=== PATIENT | female | born 1935 | race Two or more races ===

== ENCOUNTER 2016-08-02 14:26 | Inpatient (IN) | payer BC ==
[~2016-08-02] VITALS: Ht 162.6 cm; Wt 55.3 kg
[2016-08-02] VITALS (14 sets, daily range): BP systolic 93–123; BP diastolic 52–83
--- NOTE | 2016-08-02 14:27 | NUR ---
CALLED RT FOR STAT ABG
[2016-08-02] MEDS ORDERED: IV NS 0.9% 1,000 ML BAG IV ONE ×2 (14:30→15:30)
[2016-08-02] MEDS ORDERED: IV SET PRIMARY PUMP SET 1 EA INFUS.SET MC ONE ×5 (14:30→17:52)
[2016-08-02] MEDS ORDERED: IV NS 0.9% 1,000 ML ONE (14:30)
--- NOTE | 2016-08-02 14:32 | NUR ---
Jose R from home due to altered mental status. Per report patient was founf on the floor by her . bs in field was greater than 500mg/dl. Patient receieved, awake, alert however confused. Appears weak, in mild distress, respiration even and unlabored. Sating 99% on room air. Skin is warm to touch and non diaphoretic. Afebrile. Gowned and placed on tele monitor.
--- NOTE | 2016-08-02 14:33 | NUR ---
Md Urena at bedside
--- NOTE | 2016-08-02 14:40 | NUR ---
(16 ) FR bella catheter inserted per sterile protocal. Immediate output (200 )ML of urine, color (yellow ), clarity ( )
--- NOTE | 2016-08-02 14:50 | NUR ---
Rt at for stat abg
[2016-08-02] MEDS ORDERED: INSU100V7 SQ (14:59)
[2016-08-02] MEDS ORDERED: INSU100V11 SQ (14:59)
[2016-08-02 15:00] LABS: BASOPHILS # (AUTO) 0.5 /CMM (0.0-0.2); BASOPHILS % (AUTO) 2.2 % (0.0-2.0); EOSINOPHILS # (AUTO) 0.6 /CMM (0.0-0.7); EOSINOPHILS % (AUTO) 2.5 % (0.0-6.0); HEMATOCRIT 49 % (33-45); HEMOGLOBIN 14.5 g/dL (11.5-14.8); LYMPHOCYTES # (AUTO) 1.2 /CMM (0.8-4.8); LYMPHOCYTES % (AUTO) 5.5 % (20.0-44.0); MEAN CORPUSCULAR HEMOGLOBIN 29 PG (26.0-33.0); MEAN CORPUSCULAR HGB CONC 30 g/dl (31.0-36.0); MEAN CORPUSCULAR VOLUME 97 fL (82-100); MONOCYTES # (AUTO) 0.5 /CMM (0.1-1.30); MONOCYTES % (AUTO) 2.4 % (2.0-12.0); NEUTROPHILS # (AUTO) 19.8 /CMM (1.8-8.9); NEUTROPHILS % (AUTO) 87.4 % (43.0-81.0); PLATELET COUNT (AUTO) 389 /CMM (150-450); RDW COEFFICIENT OF VARIATION 14.1 (11.5-15.0); RED BLOOD CELL COUNT(AUTO) 5.04 MIL/uL (4.0-5.2); WHITE BLOOD COUNT (AUTO) 22.6 K/uL (4.3-11.0)
--- NOTE | 2016-08-02 15:00 | NUR ---
pt was taken to ct
[2016-08-02 15:01] LABS: ABG BASE EXCESS -18.6 mmol/L; ABG OXYGEN SATURATION 95.9 % (92.0-98.5); ABG PCO2 21.4 mmHg (35.0-45.0); ABG PH 7.179 (7.350-7.450); ABG PO2 97.6 mmHg (75.0-100.0); ABG TOTAL HEMOGLOBIN 13.5 G/dL (12.0-16.0); AaDO2 26.5 mmHg; COHb 0.4 % (0.5-1.5); MetHb 0.6 % (0.0-1.5); O2Hb 94.9 % (94.0-97.0); SITE, ABG Right Radial; VENT MODE, BG RA
[2016-08-02 15:02] LABS: APPEARANCE,URINE Clear (CLEAR); BILIRUBIN,URINE Negative (NEGATIVE); BLOOD, URINE Large Ery/uL (NEGATIVE); COLOR,URINE Yellow (YELLOW); KETONES,URINE 40 (NEGATIVE); LEUKOCYTE ESTERASE ,URINE Negative (NEGATIVE); NITRITE, URINE Negative (NEGATIVE); PROTEIN,URINE Trace mg/dl (NEGATIVE); UROBILINOGEN,URINE 0.2 EU/dL (0.2)
--- NOTE | 2016-08-02 15:03 | NUR ---
iv accessed to [facility] 20. blood sample sent to lab
--- NOTE | 2016-08-02 15:14 | NUR ---
CALLED NURSING SUP. FOR ICU BED, SAID SHE WILL CALL ME BACK
[2016-08-02 15:15] LABS: PROTHROMBIN TIME 10.4 SECS (9.5-12.7)
--- NOTE | 2016-08-02 15:15 | NUR ---
patient still in ct
[2016-08-02 15:17] LABS: UGLUCOSE 500 MG/DL mg/dL (NEGATIVE)
[2016-08-02 15:17] LABS: ALANINE AMINOTRANSFERASE 73 U/L (12-78); ALBUMIN 3.4 g/dL (3.4-5.0); ALKALINE PHOSPHATASE 103 U/L (46-116); ASPARTATE AMINOTRANSFERASE 64 U/L (15-37); BILIRUBIN,DIRECT 0.3 mg/dL (0.0-0.2); BILIRUBIN,TOTAL 0.7 mg/dL (0.2-1.0); CALCIUM, SERUM 9.3 mg/dL (8.5-10.1); CHLORIDE 88 mmol/L (98-107); CREATININE 2.7 mg/dL (0.6-1.3); POTASSIUM 5.9 mmol/L (3.5-5.1); SODIUM SERUM 131 mmol/L (136-145); UREA NITROGEN, BLOOD 67 mg/dL (7-18)
[2016-08-02 15:18] LABS: ADD URINE CULTURE NO; BACTERIA,URINE Few /HPF (None Seen); SQUAMOUS EPITHELIAL CELL,UR Few /HPF (None Seen)
[2016-08-02 15:18] LABS: SERUM AMMONIA 21 umol/L (11-32)
[2016-08-02 15:19] LABS: CARBON DIOXIDE 10 mmol/L (21-32)
[2016-08-02 15:25] LABS: LACTIC ACID 4.9 mmol/L (0.4-2.0)
[2016-08-02 15:26] LABS: ALCOHOL, BLOOD < 3 mg/dL (0-0)
[2016-08-02 15:27] LABS: TROPONIN I 2.457 ng/mL (0.00-0.056)
[2016-08-02] MEDS ORDERED: INSULIN REGULAR, HUMAN 100 UNIT in IV NS 0.9% 99 ML IV PRN ×4 (15:30→17:00)
[2016-08-02] MEDS ORDERED: SODIUM BICARBONATE SYR 50 MEQ/50 ML DISP.SYRIN IV ONE (15:30)
[2016-08-02 15:31] LABS: GLUCOSE 1060 mg/dL (74-106)
[2016-08-02] MEDS ORDERED: SODIUM BICARBONATE SYR 50 MEQ/50 ML DISP.SYRIN ONE (15:37)
[2016-08-02] MEDS ORDERED: PIPERACILLIN /TAZOBACTAM 3.375 G in IV D5W 50 ML IV ONE (16:00)
[2016-08-02] MEDS ORDERED: ASPIRIN 300 MG/SUPP.RECT RC ONE ×2 (16:00→16:13)
--- NOTE | 2016-08-02 16:18 | NUR ---
patient is back from ct
--- NOTE | 2016-08-02 16:18 | NUR ---
Md boyce at bs. Per MD Boyce leave patient;'s insulin at 6u/hr at this time,.
[2016-08-02 16:30] LABS: BAND % (MANUAL) 6 % (0.0-5.0); BASOPHILS % (MANUAL) 0 % (0.0-2.0); EOSINOPHILS % (MANUAL) 1 % (0-4); MONOCYTES % (MANUAL) 4 % (0-11.0); NEUTROPHILS % (MANUAL) 77 (42-76); PLATELET ESTIMATE ADEQUATE
[2016-08-02] MEDS ORDERED: ZOLPIDEM TARTRATE 5 MG TABLET PO PRN (16:30)
[2016-08-02] MEDS ORDERED: MAGNESIUM HYDROXIDE 30 ML UDC PO PRN (16:30)
[2016-08-02] MEDS ORDERED: ACETAMINOPHEN 325 MG TABLET PO PRN (16:30)
[2016-08-02] MEDS ORDERED: Z GUARD REMEDY 2 OZ OINT TP PRN (16:30)
[2016-08-02] MEDS ORDERED: MORPHINE SULFATE INJ 2 MG/ML DISP.SYRIN IV PRN (16:30)
[2016-08-02] MEDS ORDERED: MAG HYDROX/AL HYDROX/SIMETH 30 ML UDC PO PRN (16:30)
[2016-08-02] MEDS ORDERED: ONDANSETRON HCL/PF 4 MG/2 ML VIAL IVP PRN (16:30)
[2016-08-02] MEDS ORDERED: HYDROCODONE/APAP 5/325MG 1 EACH TABLET PO PRN (16:30)
[2016-08-02] MEDS ORDERED: ENOXAPARIN SODIUM 40 MG/0.4 ML DISP.SYRIN SQ SCH (16:30)
[2016-08-02] MEDS ORDERED: IV LR 1000 ML 1,000 ML ONE (17:00)
[2016-08-02] MEDS ORDERED: IV LR 1000 ML 1,000 ML IV ONE (17:00)
[2016-08-02] MEDS ORDERED: CALCIUM CHLORIDE 1,000 MG/10 ML DISP.SYRIN ONE (17:03)
[2016-08-02] MEDS ORDERED: DILTIAZEM HCL 25 MG IV ONE (17:03)
--- NOTE | 2016-08-02 17:07 | NUR ---
PATIENT WAS NOTED WITH HR 170-=- MD SHARON TAYLOR AT BEDSIDE. VERBAL ORDERS RECEIVED
--- NOTE | 2016-08-02 17:17 | NUR ---
[facility] PAGED, DR.VU CROFT MOVIE MACHINE OPERATOR
[2016-08-02 17:29] LABS: CALCIUM, SERUM 8.1 mg/dL (8.5-10.1); CREATININE 2.7 mg/dL (0.6-1.3); POTASSIUM 5.3 mmol/L (3.5-5.1)
[2016-08-02] MEDS ORDERED: Calcium Gluconate 1GM/10ML 4.65 MEQ in IV D5W 50 ML IV ONE (17:30)
[2016-08-02] MEDS ORDERED: DILTIAZEM HCL 25 MG IV IV ONE (17:30)
[2016-08-02] MEDS ORDERED: SECONDARY IV SET 1 EA INFUS.SET MC ONE (17:52)
[2016-08-02] MEDS: BLOOD SUGAR DIAGNOSTIC 1 EACH STRIP IN SCH ×7 (17:52→23:06)
[2016-08-02] MEDS ORDERED: AMIODARONE 900 MG in IV D5W 482 ML IV PRN (18:00)
[2016-08-02] MEDS ORDERED: AMIODARONE 150 MG in IV D5W 100 ML IV ONE (18:00)
--- NOTE | 2016-08-02 18:00 | NUR ---
DR CROFT NOTIFIED BS 997. ON THI USE FOLLOWING FORMULA BSX2 /100
[2016-08-02] MEDS: CEFTRIAXONE 1 G in IV D5W 50 ML IV SCH (18:37)
[2016-08-02] MEDS: IV NS 0.9% 1,000 ML IV PRN (18:40)
[2016-08-02 19:05] LABS: CALCIUM, SERUM 8.9 mg/dL (8.5-10.1); CREATININE 2.6 mg/dL (0.6-1.3); POTASSIUM 4.2 mmol/L (3.5-5.1)
[2016-08-02 19:21] LABS: LACTIC ACID 3.9 mmol/L (0.4-2.0)
--- NOTE | 2016-08-02 20:00 | NUR ---
ICU/RN RECEIVED PT AWAKE ALERT ORIENTED TO PERSON,REORIENTED TO PLACE AND SURROUNDINGS.CONFUSED AT TIMES.ON AMIODARONE DRIP AT 1MG/HR FOR AFIB W/RVR.ON INSULIN DRIP AT 17 UNITS/HR.DENIES PAIN OR DISCOMFORT.
[2016-08-02] MEDS ORDERED: METOPROLOL TARTRATE INJ 5 MG/5 ML AMPUL IVP PRN (21:00)
[2016-08-02] MEDS ORDERED: METOPROLOL TARTRATE INJ 5 MG/5 ML AMPUL ONE (21:30)
--- NOTE | 2016-08-02 21:30 | NUR ---
ICU/RN DR MISHRA IN TO SEE PT.UPDATED W/ PT'S CONDITION.REMAINS IN AFIB W/ RVR
[2016-08-02] MEDS ORDERED: ENOXAPARIN SODIUM 30 MG/0.3 ML DISP.SYRIN ONE (21:33)
--- NOTE | 2016-08-02 21:57 | NUR ---
ICU/RN LOPRESSOR 2.5MG SLOW IVP GIVEN FOR AFIB W RVR OF 138.HR DOWN TO 90'S-100'S IN A-FIB.
[2016-08-03] VITALS (43 sets, daily range): BP systolic 11–157; BP diastolic 39–75
[2016-08-03] MEDS: BLOOD SUGAR DIAGNOSTIC 1 EACH STRIP IN SCH ×12 (00:28→21:21)
[2016-08-03] MEDS: IV NS 0.9% 1,000 ML IV PRN ×2 (00:44→06:28)
--- NOTE | 2016-08-03 01:33 | NUR ---
ICU/RN CONVERTED TO NSR 90'S-111.STABLE BP 100'S.
[2016-08-03 04:48] LABS: EOSINOPHILS % (AUTO) 0.1 % (0.0-6.0); HEMATOCRIT 39 % (33-45); HEMOGLOBIN 12.9 g/dL (11.5-14.8); LYMPHOCYTES # (AUTO) 0.3 /CMM (0.8-4.8); LYMPHOCYTES % (AUTO) 2.3 % (20.0-44.0); MEAN CORPUSCULAR HEMOGLOBIN 29 PG (26.0-33.0); MEAN CORPUSCULAR HGB CONC 33 g/dl (31.0-36.0); MEAN CORPUSCULAR VOLUME 89 fL (82-100); MONOCYTES # (AUTO) 1.1 /CMM (0.1-1.30); MONOCYTES % (AUTO) 7.9 % (2.0-12.0); NEUTROPHILS # (AUTO) 12.6 /CMM (1.8-8.9); NEUTROPHILS % (AUTO) 89.7 % (43.0-81.0); PLATELET COUNT (AUTO) 273 /CMM (150-450); RED BLOOD CELL COUNT(AUTO) 4.39 MIL/uL (4.0-5.2)
[2016-08-03 05:07] LABS: CALCIUM, SERUM 8.3 mg/dL (8.5-10.1); MAGNESIUM 2.4 mg/dL (1.8-2.4); PHOSPHORUS 2.5 mg/dL (2.5-4.9); POTASSIUM 3.3 mmol/L (3.5-5.1)
--- NOTE | 2016-08-03 06:45 | NUR ---
ICU/RN IN TO SEE PT.UPDATED W/ PT'S CONDITION.
--- NOTE | 2016-08-03 06:58 | NUR ---
ICU/RN DR. CROFT DC'D INSULIN DRIP
[2016-08-03] MEDS ORDERED: Potassium Chloride 20 MEQ in IV D5/0.45 NACL 1,000 ML IV PRN (07:00)
[2016-08-03] MEDS ORDERED: ASPIRIN 300 MG/SUPP.RECT RC SCH (09:00)
[2016-08-03] MEDS: PANTOPRAZOLE 40 MG VIAL IV SCH (09:05)
[2016-08-03] MEDS: INSULIN REGULAR, HUMAN 100 UNIT/ML 3 ML VIAL SQ PRN ×4 (09:38→21:24)
--- NOTE | 2016-08-03 16:00 | NUR ---
Pt up with physical therapy. Able to get out ob bed. Tolerated activity well, vss, no sob.
--- NOTE | 2016-08-03 17:00 | NUR ---
LUE swollen and worm to touch. Amiodarone D/C, IV D/C Extremity elevated cold compress applied.
[2016-08-03] MEDS: CEFTRIAXONE 1 G in IV D5W 50 ML IV SCH (17:13)
[2016-08-03] MEDS: AMIODARONE HCL 200 MG TABLET PO SCH (17:14)
--- NOTE | 2016-08-03 18:00 | NUR ---
Amiodarone gtt completed per protocol, pt medicated with po amio. Remains in NSR.
[2016-08-03] MEDS: IV 1/2NS 1000 ML 1,000 ML IV PRN (18:58)
--- NOTE | 2016-08-03 19:45 | NUR ---
ICU/PR INTERN RECEIVED REPORT FROM DAY NURSE. PT IS ALERT X2, WITH PERIODS OF CONFUSION. BED ALARM IS ON. PT IS ON O2 VIA N/C WITH SATURATION 99%. PT IS OFF AMINO DRIP, NOW ON PO. BUT IS SR ON THE MONITOR. PT HAS F/C DRAINING YELLOW. PT HAS SCD'S ON WELL LOVENOX SQ. PT HAS A LEFT HAND POSSIBLE IV INFILTRATE. PT'S HAND IS UP ON PILLOWS WITH ICE GLOVE TO THIS AREA. PT HAS IVF OF 1/2 NS AT 125ML TO RIGHT FA. CALL LIGHT WITHIN REACH, PT CURRENTLY DENIES PAIN.
[2016-08-03] MEDS: METOPROLOL TARTRATE 25 MG TABLET PO SCH (21:21)
[2016-08-03] MEDS: ENOXAPARIN SODIUM 30 MG/0.3 ML DISP.SYRIN SQ SCH (21:22)
--- NOTE | 2016-08-03 21:30 | NUR ---
ICU/SALES ENABLEMENT MANAGER PT'S 2100 BLOOD SUGAR WAS 322, THIS WAS COVERED WITH 16 UNITS REGULAR INSULIN. PLUS THERE WAS 9 UNITS OF LANTUS GIVEN AT THIS TIME. WILL CONTINUE TO DO ACCU CHECKS EVERY 4 HOURS ORDERED BY .
[2016-08-03] MEDS ORDERED: INSULIN DETEMIR 100 UNIT/ML CARTRIDGE SQ SCH (22:00)
[2016-08-04] VITALS (31 sets, daily range): BP systolic 96–164; BP diastolic 47–92
[2016-08-04] MEDS: BLOOD SUGAR DIAGNOSTIC 1 EACH STRIP IN SCH ×6 (01:23→21:29)
--- NOTE | 2016-08-04 01:30 | NUR ---
ICU/SUPERVISOR CARBON PAPER COATING PT'S BLOOD SUGAR WAS 112, THERE WAS NO COVERAGE FOR THIS. WILL CONTINUE TO MONITOR PER MD ORDERED.
--- NOTE | 2016-08-04 03:10 | NUR ---
ICU/BODY STRAIGHTENER PT'S WAS GIVEN A BATH, TOLERATED THIS WELL. PT REMAINS ON CURRENT 02 SETTINGS, SATURATION IS 99%. PT CURRENTLY DENIES PAIN CALL LIGHT WITHIN REACH.
--- NOTE | 2016-08-04 04:10 | NUR ---
ICU/DIRECTOR WATER AND WASTE SERVICES PT APPEARS SOMEWHAT LETHARGIC, BLOOD SUGAR CHECK WAS DONE, WAS 38. NOTIFIED CHARGE NURSE ABOUT THIS. DEXTROSE 50% GIVEN VIA IV BY RN. WILL CHECK BLOOD SUGAR AGAIN IN 15 MINUTES.
[2016-08-04] MEDS: DEXTROSE 50%-WATER 50 ML DISP.SYRIN IV PRN (04:14)
[2016-08-04] MEDS: IV 1/2NS 1000 ML 1,000 ML IV PRN (04:21)
--- NOTE | 2016-08-04 04:35 | NUR ---
ICU/COST CLERK RECHECK BLOOD SUGAR WAS 213, POST THE DEXTROSE 50%. PT APPEARS TO MORE ALERT AND VERY RESPONSIVE. WILL CONTINUE TO MONITOR THE BLOOD SUGAR.
[2016-08-04] MEDS: AMIODARONE HCL 200 MG TABLET PO SCH ×2 (04:37→17:29)
[2016-08-04 04:50] LABS: HEMATOCRIT 41 % (33-45); HEMOGLOBIN 13.4 g/dL (11.5-14.8); MEAN CORPUSCULAR HEMOGLOBIN 29 PG (26.0-33.0); MEAN CORPUSCULAR HGB CONC 33 g/dl (31.0-36.0); MEAN CORPUSCULAR VOLUME 90 fL (82-100); PLATELET COUNT (AUTO) 242 /CMM (150-450); RDW COEFFICIENT OF VARIATION 14.6 (11.5-15.0); RED BLOOD CELL COUNT(AUTO) 4.55 MIL/uL (4.0-5.2); WHITE BLOOD COUNT (AUTO) 12.9 K/uL (4.3-11.0)
[2016-08-04 05:10] LABS: CALCIUM, SERUM 7.4 mg/dL (8.5-10.1); CREATININE 1.4 mg/dL (0.6-1.3); PHOSPHORUS 1.2 mg/dL (2.5-4.9); POTASSIUM 3.1 mmol/L (3.5-5.1)
[2016-08-04 05:17] LABS: TROPONIN I 2.609 ng/mL (0.00-0.056)
[2016-08-04 05:34] LABS: PLATELET ESTIMATE ADEQUATE
--- NOTE | 2016-08-04 05:35 | NUR ---
ICU/MODERN LANGUAGES PROFESSOR CRITICAL LAB VALUES WERE CALLED, 08/04-TROPONIN WAS 4.073 & 2.045 TODAY IS 2.609. ALSO LACTIC ACID 08/02 3.9 AND 08/04 WAS 2.0. CHARGE NURSE IS AWARE OF THESE CRITICAL LABS.
[2016-08-04 07:36] LABS: LACTIC ACID REFLEX 2.3 mmol/L (0.4-1.9)
[2016-08-04 07:37] LABS: BILIRUBIN,DIRECT 0.1 mg/dL (0.0-0.2); BILIRUBIN,TOTAL 0.3 mg/dL (0.2-1.0)
--- NOTE | 2016-08-04 08:00 | NUR ---
CUTTING TABLE OPERATOR NOTE: RECEIVED PATIENT RESTING IN BED ALERT AND ORIENTED X2 WITH PERIODS OF CONFUSION. PATIENT ON 2L 02 VIA NC NO DISTRESS NOTED. SR ON TELE MONITOR. PATIENT NOTED WITH RFA 20g AND GUSTAVO 20G RUNNING 1/2NS AT 125ML/HR . CLARK DRAINING TO GRAVITY, SCD'S NOTED. SAFETY MEASURES OBSERVED. CALL LIGHT PLACED WITHIN REACH. ONGOING MONITORING.
[2016-08-04] MEDS: ASPIRIN 81 MG TAB.CHEW PO SCH (09:38)
[2016-08-04] MEDS: METOPROLOL TARTRATE 25 MG TABLET PO SCH ×2 (09:39→21:29)
[2016-08-04] MEDS: PANTOPRAZOLE 40 MG VIAL IV SCH (09:39)
[2016-08-04 11:28] LABS: LYMPHOCYTES % (MANUAL) 12 % (16-48)
[2016-08-04] MEDS: INSULIN REGULAR, HUMAN 100 UNIT/ML 3 ML VIAL SQ PRN ×3 (13:20→21:36)
[2016-08-04] MEDS ORDERED: K PHOS NEUTRAL 250 MG TABLET PO ONE (16:30)
[2016-08-04] MEDS: CEFTRIAXONE 1 G in IV D5W 50 ML IV SCH (17:29)
--- NOTE | 2016-08-04 17:51 | NUR ---
ADVERTISING SALES ASSISTANT NOTE: CALL MADE TO DR. CROFT INFORMING HIM THAT PATIENT IS STABLE AND VS ARE STABLE. PATIENT WOULD LIKE TO WALK, RECEIVED ORDER FOR TRANSFER TO TELE, PHYSICAL THERAPY AND INFORMED MD THAT BS DROPPED TO 38 IN THE AM, RECEIVED ORDER TO CHANGE REGULAR INSULIN TO MODERATE SCALE AND D/C AGGRESSIVE SCALE. ORDERS READ BACK AND VERIFIED WILL CARRY OUT.
--- NOTE | 2016-08-04 18:45 | NUR ---
ART PSYCHOTHERAPIST OR THERAPIST NOTE: PATIENT RESTING COMFORTABLY IN BED ALERT AND ORIENTED X2-3. SR ON MONITOR, ON 2L O2 VIA NC, NO DISTRESS NOTED. IV SITES PATENT AND INTACT RUNNING FLUIDS ORDERED. PATIENT NOTED WITH DIARRHEA DURING SHIFT, WITH 3 BM'S. CLEANED AND TURNED AND REPOSITIONED AND EXTREMITIES OFFLOADED. SKIN NOTED TO BE INTACT. SAFETY MEASURES OBSERVED. CALL LIGHT PLACED WITHIN REACH. PATIENT IN TELE STATUS. WILL ENDORSE FOR CONTINUITY OF CARE. Addendum: 08/04/16 at 1854 by DEMI HI RN CLARK CATHETER DRAINING TO GRAVITY NOTED WITH 700ML OF UOP, CLEAR YELLOW.
--- NOTE | 2016-08-04 19:35 | NUR ---
ICU/COLOR PRINT INSPECTOR RECEIVED REPORT FROM DAY NURSE. PT IS ALERT X2, WITH PERIODS OF FORGETFULNESS. BED ALARM IS ON. PT IS ON O2 2 LITERS VIA N/C WITH SATURATION 99%.PT IS SR ON THE MONITOR. PT HAS F/C DRAINING YELLOW. PT HAS SCD'S AND ON LOVENOX SQ. PT HAS A LEFT HAND SWOLLEN. PT'S HAND IS UP ON PILLOWS WITH ICE GLOVE TO THIS AREA. PT HAS IVF OF 1/2 NS PLUS KCL 20MEQ AT 125ML TO RIGHT UPPER ARM 20G. CALL LIGHT WITHIN REACH, PT CURRENTLY DENIES PAIN.
[2016-08-04] MEDS: ATORVASTATIN 10 MG TABLET PO SCH (21:30)
[2016-08-04] MEDS: ENOXAPARIN SODIUM 30 MG/0.3 ML DISP.SYRIN SQ SCH (21:30)
--- NOTE | 2016-08-04 21:45 | NUR ---
ICU/SOURCING SPECIALIST PT'S 2100 BLOOD SUGAR WAS 161, THIS WAS COVERED WITH 3 UNITS REGULAR INSULIN. PLUS THERE WAS 6 UNITS OF LANTUS GIVEN AT THIS TIME. WILL CONTINUE TO DO ACCU CHECKS EVERY 4 HOURS ORDERED BY MD. PT HAD AT THIS TIME LOSE WATERY STOOL. PT WAS CLEANED UP AND REPOSITIONED FOR COMFORT AND CARE. CALL LIGHT WITHIN REACH, RE-ORT TO ROOM AND CALL LIGHT WAS NEEDED.
[2016-08-04] MEDS ORDERED: INSULIN DETEMIR 100 UNIT/ML CARTRIDGE SQ SCH (22:00)
[2016-08-05] VITALS (13 sets, daily range): BP systolic 120–166; BP diastolic 67–109
[2016-08-05] MEDS ORDERED: LOPERAMIDE HCL (2 MG CAP) 2 MG CAPSULE PO PRN (00:30)
[2016-08-05] MEDS: BLOOD SUGAR DIAGNOSTIC 1 EACH STRIP IN SCH ×6 (00:58→20:58)
--- NOTE | 2016-08-05 01:00 | NUR ---
ICU/ORTHOPAEDIC TECHNOLOGIST PT'S 0100 BLOOD SUGAR WAS 94, THIS WAS NOT COVERED. WILL CONTINUE TO DO ACCU CHECKS EVERY 4 HOURS ORDERED BY . PT AGAIN HAD BM LOSE WATERY STOOL. PT WAS CLEANED UP AND REPOSITIONED FOR COMFORT AND CARE. CALL LIGHT WITHIN REACH, RE-ORT TO ROOM AND CALL LIGHT WAS NEEDED. CALLED DYLAN AIRCRAFT STRUCTURE MECHANIC TO GET PO IMODIUM PRN FOR THE LOSE STOOL. ORDER WAS RECEIVED AND PLACED.
--- NOTE | 2016-08-05 03:01 | NUR ---
ICU/LEGAL RESEARCHER PT'S WAS GIVEN A BATH, TOLERATED THIS WELL. PT REMAINS ON CURRENT 02 SETTINGS, SATURATION IS 99%. PT CURRENTLY DENIES PAIN CALL LIGHT WITHIN REACH.
--- NOTE | 2016-08-05 04:30 | NUR ---
ICU/CRYSTAL GAZER PT HAD LOW BS YESTERDAY, BLOOD SUGAR CHECK WAS DONE, WAS 44. NOTIFIED CHARGE NURSE ABOUT THIS. DEXTROSE 50% GIVEN VIA IV BY RN. WILL CHECK BLOOD SUGAR AGAIN IN 15 MINUTES.
[2016-08-05] MEDS: DEXTROSE 50%-WATER 50 ML DISP.SYRIN IV PRN (04:41)
--- NOTE | 2016-08-05 04:45 | NUR ---
ICU/DIRECTOR LIFE RECHECK BLOOD SUGAR WAS 222, POST THE DEXTROSE 50%. PT APPEARS TO MORE ALERT AND VERY RESPONSIVE. WILL CONTINUE TO MONITOR THE BLOOD SUGAR.
[2016-08-05 05:00] LABS: BASOPHILS % (AUTO) 0.1 % (0.0-2.0); EOSINOPHILS % (AUTO) 0.1 % (0.0-6.0); HEMATOCRIT 43 % (33-45); HEMOGLOBIN 14.3 g/dL (11.5-14.8); LYMPHOCYTES # (AUTO) 1.4 /CMM (0.8-4.8); LYMPHOCYTES % (AUTO) 11.5 % (20.0-44.0); MEAN CORPUSCULAR HEMOGLOBIN 29 PG (26.0-33.0); MEAN CORPUSCULAR HGB CONC 33 g/dl (31.0-36.0); MEAN CORPUSCULAR VOLUME 88 fL (82-100); MONOCYTES # (AUTO) 0.7 /CMM (0.1-1.30); MONOCYTES % (AUTO) 5.6 % (2.0-12.0); NEUTROPHILS # (AUTO) 10.2 /CMM (1.8-8.9); NEUTROPHILS % (AUTO) 82.7 % (43.0-81.0); PLATELET COUNT (AUTO) 238 /CMM (150-450); RDW COEFFICIENT OF VARIATION 14.3 (11.5-15.0); RED BLOOD CELL COUNT(AUTO) 4.89 MIL/uL (4.0-5.2); WHITE BLOOD COUNT (AUTO) 12.4 K/uL (4.3-11.0)
[2016-08-05] MEDS: AMIODARONE HCL 200 MG TABLET PO SCH ×2 (05:09→09:25)
--- NOTE | 2016-08-05 05:16 | NUR ---
ICU/GASKET INSPECTOR CALLED CHRISTINA RICHARDSON ABOUT CRITICAL BS, NO NEW ORDERS WERE RECEIVED . PT TO TRANSFERRED TO [place] ASKED ABOUT POSSIBLE D/C LEVEMIR POSSIBLE REASON BS DROPS LOW INTO 30'S & 40'S. HE SAID NO LET PROVIDER DO THIS. CHARGE NURSE AWARE OF OUTCOME. WILL CONTINUE TO MONITOR THIS PT.
[2016-08-05 05:19] LABS: CALCIUM, SERUM 7.2 mg/dL (8.5-10.1); CREATININE 0.8 mg/dL (0.6-1.3); PHOSPHORUS 2.3 mg/dL (2.5-4.9); POTASSIUM 3.8 mmol/L (3.5-5.1)
[2016-08-05 05:26] LABS: LACTIC ACID 0.7 mmol/L (0.4-2.0)
--- NOTE | 2016-08-05 05:34 | NUR ---
ICU/PUBLIC RELATIONS ANALYST REPORT GIVEN TO ED ON [place], PT TO BE TRANSFERRED TO ROOM 328-2, WITH ACLS PRECAUTIONS. ALL MEDS AND BELONGS TAKEN WITH PT TO NEW FLOOR.
--- NOTE | 2016-08-05 07:50 | NUR ---
MS RN RECEIVED ON BED, AWAKE,ALERT,ORIENTED X2-3,NOT IN ANY FORM OF DISTRESS, RESPIRATIONS EVEN AND UNLABORED,NO SOB NOTED. LUNGS ARE DIMINISH, ABDOMEN SOFT,POSITIVE BOWEL SOUNDS, DENIES PAIN AT THIS TIME,CLARK TO GRAVITY W/ YELLOWISH URINE OUTPUT, WILL MONITOR PATIENT.
--- NOTE | 2016-08-05 08:20 | NUR ---
MS [place] BREAKFAST SERVED,DUE MEDS GIVEN.TOLERATED WELL.
[2016-08-05] MEDS: PANTOPRAZOLE 40 MG VIAL IV SCH (09:23)
[2016-08-05] MEDS: METOPROLOL TARTRATE 25 MG TABLET PO SCH ×2 (09:24→21:05)
[2016-08-05] MEDS: ASPIRIN 81 MG TAB.CHEW PO SCH (09:24)
[2016-08-05] MEDS: LEVOTHYROXINE SODIUM 125 MCG TABLET PO SCH (09:25)
[2016-08-05] MEDS: INSULIN REGULAR, HUMAN 100 UNIT/ML 3 ML VIAL SQ PRN ×3 (12:43→21:16)
[2016-08-05] MEDS ORDERED: K PHOS NEUTRAL 250 MG TABLET PO ONE (14:00)
[2016-08-05] MEDS ORDERED: IV NS 0.9% 1,000 ML IV PRN (17:00)
--- NOTE | 2016-08-05 18:05 | NUR ---
MS RN ON BED, NO DISTRESS NOTED,ALL NEEDS ATTENDED, NO CHANGE OF CONDITION.
--- NOTE | 2016-08-05 19:15 | NUR ---
RN NOTE RECEIVED REPORT. PT AWAKE AND ORIENTATED X3. NO C/O OF PAIN OR DISCOMFORT. DENIES SOB/CP. SKIN WARM TO TOUCH, NON-DIAPHORETIC. MEET WITH PT. IV INTACT AND PATENT, TOLERATING FLUIDS WELL. CALL LIGHT IN REACH WILL CONT TO MONITOR.
[2016-08-05] MEDS: ATORVASTATIN 10 MG TABLET PO SCH (21:05)
[2016-08-05] MEDS: ENOXAPARIN SODIUM 30 MG/0.3 ML DISP.SYRIN SQ SCH (21:16)
[2016-08-06] MEDS: BLOOD SUGAR DIAGNOSTIC 1 EACH STRIP IN SCH ×3 (01:07→10:26)
[2016-08-06] MEDS ORDERED: IV SET PRIMARY PUMP SET 1 EA INFUS.SET MC ONE (03:14)
[2016-08-06] MEDS: DEXTROSE 50%-WATER 50 ML DISP.SYRIN IV PRN (05:20)
--- NOTE | 2016-08-06 05:20 | NUR ---
RN NOTE BS 60. D50 GIVEN. WILL CONTINUE TO MONITOR. WILL RECHECK BS
--- NOTE | 2016-08-06 06:12 | NUR ---
RN NOTE BS RECHECK 136. NO SIGNIFICANT CHANGES THIS SHIFT. PT SLEPT WELL. NO DISTRESS AT THIS TIME, BREATHING NON-LABORED AND EVEN ON NC 2L. F/C DRAINING AND INTACT. CALL LIGHT IN REACH. ALL NEEDS ATTENDED TO, WILL F/U WITH DAY SHIFT FOR LISA.
[2016-08-06 07:02] LABS: BASOPHILS % (AUTO) 0.1 % (0.0-2.0); HEMATOCRIT 42 % (33-45); HEMOGLOBIN 13.8 g/dL (11.5-14.8); LYMPHOCYTES # (AUTO) 0.9 /CMM (0.8-4.8); LYMPHOCYTES % (AUTO) 7.5 % (20.0-44.0); MEAN CORPUSCULAR HEMOGLOBIN 29 PG (26.0-33.0); MEAN CORPUSCULAR HGB CONC 33 g/dl (31.0-36.0); MEAN CORPUSCULAR VOLUME 89 fL (82-100); MONOCYTES # (AUTO) 0.8 /CMM (0.1-1.30); MONOCYTES % (AUTO) 6.7 % (2.0-12.0); NEUTROPHILS # (AUTO) 10.5 /CMM (1.8-8.9); NEUTROPHILS % (AUTO) 85.7 % (43.0-81.0); PLATELET COUNT (AUTO) 213 /CMM (150-450); RDW COEFFICIENT OF VARIATION 14.5 (11.5-15.0); RED BLOOD CELL COUNT(AUTO) 4.72 MIL/uL (4.0-5.2); WHITE BLOOD COUNT (AUTO) 12.3 K/uL (4.3-11.0)
--- NOTE | 2016-08-06 07:30 | NUR ---
MS RN INITIAL NOTES Received patient in bed, awake and alert. head of bed elevated, no SOB or distress noted. Patient alert and oriented times 3, patient ambulatory with minimum assistance. IV intact and patent, bed in lowest position and locked, call light within reach. Will continue to monitor accordingly.
[2016-08-06 07:41] LABS: CREATININE 0.7 mg/dL (0.6-1.3); PHOSPHORUS 2.8 mg/dL (2.5-4.9)
[2016-08-06 08:00] VITALS: BP 129/59
[2016-08-06] MEDS ORDERED: POTASSIUM CHLORIDE 20 MEQ TAB.PRT.SR PO ONE (08:00)
[2016-08-06] MEDS: PANTOPRAZOLE 40 MG VIAL IV SCH (08:25)
[2016-08-06] MEDS: LEVOTHYROXINE SODIUM 125 MCG TABLET PO SCH (08:25)
[2016-08-06] MEDS: ASPIRIN 81 MG TAB.CHEW PO SCH (08:25)
[2016-08-06 08:26] VITALS: BP 129/60
[2016-08-06] MEDS: METOPROLOL TARTRATE 25 MG TABLET PO SCH (08:26)
[2016-08-06] MEDS: INSULIN REGULAR, HUMAN 100 UNIT/ML 3 ML VIAL SQ PRN (10:27)
== END 2016-08-06 13:15 | disposition home or self-care (01) | DRG 871 ==
LOC: ER 14:28 → ICU 15:59 → TELE 08-05 05:44 → MED 08-05 16:52
PROVIDERS: ADMIT Family Medicine; ATTEND Family Medicine
DX: A41.9 Sepsis, unspecified organism (principal); G93.41 Metabolic encephalopathy; I21.4 Non-ST elevation (NSTEMI) myocardial infarction; E10.10 Type 1 diabetes mellitus with ketoacidosis without coma; N17.0 Acute kidney failure with tubular necrosis; I51.81 Takotsubo syndrome; E87.1 Hypo-osmolality and hyponatremia; R65.20 Severe sepsis without septic shock; E87.5 Hyperkalemia; I48.0 Paroxysmal atrial fibrillation; Z79.4 Long term (current) use of insulin; M48.02 Spinal stenosis, cervical region; Z90.49 Acquired absence of other specified parts of digestive tract; K76.0 Fatty (change of) liver, not elsewhere classified; I10 Essential (primary) hypertension
CPT/HCPCS: 36415; 36600; 70450-TC; 71010-TC; 72125-TC; 80048-TC; 80076-TC; 81000-TC; 82140-TC; 82247-TC; 82248-TC; 82947-TC; 82962-TC; 83605-TC; 83735-TC; 84100-TC; 84484-TC; 85025-TC; 85730-TC; 87040-TC; 87081-TC; 87086-TC; 92526; 92611-TC; 93307-TC; 94760-TC; 94799-TC; 97001-TC; A4606; C9113; G0480; J0282; J0610; J0696; J1650; J1815; J2543; J3480; J3490; J7030; J7060; J7120; Z7610